=== PATIENT | male | born 2000 | race Caucasian/White ===

== ENCOUNTER 2022-09-12 14:37 | Emergency (ER) ==
[~2022-09-12] VITALS: Ht 185.4 cm; Wt 100.7 kg
[2022-09-12 17:26] VITALS: BP 162/79; TEMP 98.7; O2SAT 98
[2022-09-13] MEDS ORDERED: CIPR7.5D5 AD (00:04)
== END 2022-09-12 20:25 | disposition left against medical advice (07) ==
LOC: M ED 14:37
DX: Z53.21 Procedure and treatment not carried out due to patient leaving prior to being seen by health care provider (principal)

== ENCOUNTER 2022-09-12 21:43 | Emergency (ER) | payer OTHER ==
[~2022-09-12] VITALS: Ht 185.4 cm; Wt 100.0 kg
[2022-09-13] MEDS ORDERED: CIPRODEX OTIC SUSP 7.5ML AD STA (00:02)
[2022-09-13] MEDS ORDERED: CIPR7.5D5 AD (00:04)
[2022-09-13 00:32] VITALS: BP 168/79; TEMP 98.7; O2SAT 99
== END 2022-09-13 00:35 | disposition home or self-care (01) ==
LOC: M ED 21:43
DX: H60.91 Unspecified otitis externa, right ear (principal); Z79.2 Long term (current) use of antibiotics

== ENCOUNTER 2023-10-18 06:28 | Emergency (ER) | payer OTHER ==
[~2023-10-18] VITALS: Ht 185.4 cm; Wt 100.0 kg
[~2023-10-18 06:28] MED LIST: CIPR7.5D5 AD
[2023-10-18] MEDS: ACETAMINOPHEN TAB 650MG DOSE (2X325MG) PO ONE (08:32)
[2023-10-18] MEDS: KETOROLAC 30 MG/ML 1ML VIAL IM ONE (08:33)
[2023-10-18] MEDS ORDERED: MEDR4PAK PO (10:01)
[2023-10-18] MEDS ORDERED: METH-1165 PO (10:01)
[2023-10-18 10:16] VITALS: BP 119/56; TEMP 97.9; O2SAT 97
== END 2023-10-18 10:18 | disposition home or self-care (01) ==
LOC: M ED 06:28
DX: M54.50 Low back pain, unspecified (principal); M25.552 Pain in left hip; Z79.899 Other long term (current) drug therapy; Z79.52 Long term (current) use of systemic steroids
CPT/HCPCS: 72202; 96372; 99283; J1885

== ENCOUNTER 2024-06-27 11:16 | Emergency (ER) | payer OTHER ==
[~2024-06-27] VITALS: Ht 185.4 cm; Wt 102.0 kg
[~2024-06-27 11:16] MED LIST changes: +MEDR4PAK PO; +METH-1165 PO
[2024-06-27] MEDS ORDERED: LIDO5DIS41 TOP (14:09)
[2024-06-27] MEDS ORDERED: GABA-1171 PO (14:09)
[2024-06-27 14:19] VITALS: BP 138/75; TEMP 98.5; O2SAT 99
[2024-06-27] MEDS: LIDOCAINE 5% (LIDODERM) PATCH TD ONE (14:19)
== END 2024-06-27 14:21 | disposition home or self-care (01) ==
LOC: M ED 11:16
DX: G56.92 Unspecified mononeuropathy of left upper limb (principal); Z79.899 Other long term (current) drug therapy

== ENCOUNTER 2024-10-30 23:28 | Emergency (ER) | payer OTHER ==
[~2024-10-30] VITALS: Ht 185.4 cm; Wt 105.4 kg
[~2024-10-30 23:28] MED LIST changes: +GABA-1171 PO; +LIDO1ADH93 TOP
[2024-10-31] MEDS: traMADol 50 MG TAB PO ONE (06:51)
[2024-10-31] MEDS: IBUPROFEN 600 MG TAB PO ONE (06:51)
[2024-10-31 09:00] VITALS: BP 109/59
[2024-10-31 09:13] VITALS: TEMP 97.2; O2SAT 96
== END 2024-10-31 09:14 | disposition home or self-care (01) ==
LOC: M ED 23:28
DX: G89.18 Other acute postprocedural pain (principal); F10.10 Alcohol abuse, uncomplicated; Z79.899 Other long term (current) drug therapy